=== PATIENT | male | born 1950 | race Caucasian/White ===

== ENCOUNTER → 2018-09-17 07:02 | Outpatient (CLI) | payer MEDICARE, OTHER, SELFPAY ==
[2018-09-17 08:21] LABS: Alanine Aminotransferase 46 IU/L (21-72); Aspartate Aminotransferase 30 IU/L (17-59); Blood Urea Nitrogen 22 mg/dL (9-20); Calcium 9.6 mg/dL (8.4-10.2); Carbon Dioxide 30 mmol/L (22-32); Chloride 103 mmol/L (98-107); Cholesterol 211 mg/dL (140-199); Estimated Glomerular Filt Rate > 60.0 mL/min (>60); Glucose 119 mg/dL (80-110); HDL Cholesterol 38 mg/dL (40-60); HEMOLYSIS < 15 (0-50); LDL Cholesterol Calculated 124 mg/dL (<100); Potassium 4.3 mmol/L (3.4-5.1); Sodium 140 mmol/L (137-145); Triglycerides 245 mg/dL (35-150)
[2018-09-17 08:34] LABS: Hemoglobin A1C% w Est Avg Glu 6.1 % (4.0-6.0)
== END ==
PROVIDERS: PCP Internal Medicine; Visit Provider Internal Medicine
DX: E78.00 Pure hypercholesterolemia, unspecified (principal); I10 Essential (primary) hypertension; E11.9 Type 2 diabetes mellitus without complications
CPT/HCPCS: 36415; 80048; 80061; 83036; 84450; 84460

== ENCOUNTER → 2019-09-21 07:12 | Outpatient (CLI) | payer MEDICARE, OTHER, SELFPAY ==
[2019-09-21 08:37] LABS: Add Manual Diff / Slide Review NO; Basophils Absolute Auto 0 /uL (0-100); Basophils Percent Auto 0.4 % (0-2); Eosinophils Absolute Auto 200 /uL (0-450); Hematocrit 48.7 % (41-53); Hemoglobin 16.7 g/dL (13.5-17.5); Lymphocytes Absolute Auto 2400 /uL (1100-4500); Lymphocytes Percent Auto 26.1 % (25-40); Mean Corpuscular HGB Conc 34.3 % (30-36); Mean Corpuscular Hemoglobin 30.4 PG (26-34); Mean Corpuscular Volume 88.5 fL (80-100); Monocytes Absolute Auto 700 /uL (0-900); Monocytes Percent Auto 7.8 % (3-14); Neutrophils Absolute Auto 5800 /uL (1500-7000); Neutrophils Percent Auto 63.7 % (50-75); Platelet Count 173 X10^3/uL (150-400); Red Cell Distribution Width 13.2 % (11.6-14.8); White Blood Cell Count 9.1 X10^3/uL (4.5-11.0)
[2019-09-21 09:07] LABS: Hemoglobin A1C% w Est Avg Glu 6.6 % (4.0-6.0)
[2019-09-21 09:10] LABS: Alanine Aminotransferase 36 IU/L (<50); Albumin 4.6 g/dL (3.5-5.0); Albumin Globulin Ratio 1.7 (1.0-2.8); Alkaline Phosphatase 92 U/L (38-126); Aspartate Aminotransferase 34 IU/L (17-59); BUN Creatinine Ratio 30.1 (6-22); Bilirubin Total 0.6 mg/dL (0.2-1.3); Blood Urea Nitrogen 25 mg/dL (9-20); Calcium 9.7 mg/dL (8.4-10.2); Carbon Dioxide 26 mmol/L (22-32); Chloride 103 mmol/L (98-107); Cholesterol 146 mg/dL (140-199); Estimated Glomerular Filt Rate > 60.0 mL/min (>60); Globulin 2.7 g/dL (1.7-4.1); Glucose 114 mg/dL (80-110); HDL Cholesterol 32 mg/dL (40-60); HEMOLYSIS < 15 (0-50); LDL Cholesterol Calculated 59 mg/dL (<100); Lipase 75 U/L (23-300); Potassium 4.1 mmol/L (3.4-5.1); Sodium 140 mmol/L (137-145); Total Protein 7.3 g/dL (6.3-8.2); Triglycerides 274 mg/dL (35-150)
== END ==
PROVIDERS: PCP Internal Medicine; Referring Provider Internal Medicine; Visit Provider Internal Medicine
DX: R10.11 Right upper quadrant pain (principal); E78.5 Hyperlipidemia, unspecified; E11.9 Type 2 diabetes mellitus without complications
CPT/HCPCS: 36415; 80053; 80061; 83036; 83690; 85025

== ENCOUNTER → 2019-09-22 11:30 | Outpatient (CLI) | payer MEDICARE, OTHER, SELFPAY ==
--- NOTE | 2019-09-22 | DI.US.S_ITS ---
PROCEDURE: US ABDOMEN COMPLETE INDICATIONS: HYPERLIPIDEMIA, UNSPECIFIED TECHNIQUE: Real-time scanning was performed of the abdominal and retroperitoneal organs, with image documentation. COMPARISON: None. FINDINGS: Liver: The liver demonstrates normal size. The liver demonstrates generalized increased echogenicity. This decreases ultrasound sensitivity for detection of hepatic masses. Gallbladder: No findings of gallstones or sludge are seen. The gallbladder wall is not thickened, measuring 3 mm or less. No specific pericholecystic fluid is seen. The sonographic Cruz sign is negative. Biliary ducts: Intrahepatic bile ducts are non-dilated. Extrahepatic bile duct caliber measures 4 mm. Normal is 6-7 mm or less in diameter, or 10 mm or less post-cholecystectomy. Pancreas: Not well-seen Spleen: Spleen is normal in size and homogeneous in echotexture. Kidneys: Kidneys are normal in size and echotexture. Right kidney measures 12.1 cm long; left kidney measures 12.8 cm long. No hydronephrosis or nephrolithiasis. No solid masses. An apparent very pelvic cysts can be seen on the left, which measure up to 2.8 cm. Aorta: Visualized aorta is normal in caliber at less than 3 cm. Iliacs: Proximal common iliac arteries are normal in caliber at less than 2.5 cm. IVC: Not well-seen. Miscellaneous: No free abdominal fluid. IMPRESSION: The liver demonstrates increased echogenicity. This finding is nonspecific, yet it is most commonly attributed to fatty infiltration. The gallbladder demonstrates a normal sonographic appearance. No biliary dilatation is seen. Apparent left peripelvic cyst can be seen. Dictated by: Pedro Beck M.D. on 09/22/2019 at 14:07 Approved by: Pedro Beck M.D. on 09/22/2019 at 14:08
== END ==
PROVIDERS: PCP Internal Medicine; Referring Provider Internal Medicine; Visit Provider Internal Medicine
DX: N28.1 Cyst of kidney, acquired (principal); E78.5 Hyperlipidemia, unspecified
CPT/HCPCS: 76700

== ENCOUNTER → 2019-10-01 08:18 | Outpatient (CLI) | payer MEDICARE, OTHER, SELFPAY ==
[2019-10-02 10:08] LABS: SARS CoV19 IgG Negative (Negative)
== END ==
PROVIDERS: PCP Internal Medicine; Referring Provider Internal Medicine; Visit Provider Internal Medicine
DX: Z03.818 Encounter for observation for suspected exposure to other biological agents ruled out (principal)
CPT/HCPCS: 36415; 86769

== ENCOUNTER → 2024-03-10 10:01 | Outpatient (CLI) | payer MEDICARE, OTHER, SELFPAY ==
--- NOTE | 2024-03-10 10:05 | DI.RAD.S_ITS ---
PROCEDURE: XR CHEST 2V INDICATIONS: Other forms of dyspnea TECHNIQUE: 2 views of the chest were acquired. COMPARISON: None. FINDINGS: Heart, mediastinum and pulmonary vascular: Heart is normal in size and configuration. Mediastinum is unremarkable. Pulmonary vascular is normal. Lungs: Scattered small calcified granulomas seen in both lungs. Pleural spaces: Normal-no effusions or pneumothorax. Bones and soft tissues: Normal IMPRESSION: Negative Dictated by: Akbar Conh M.D. on 03/11/2024 at 9:04 Approved by: Akbar Cohn M.D. on 03/11/2024 at 9:04
== END ==
PROVIDERS: PCP Internal Medicine; Referring Provider Internal Medicine; Visit Provider Internal Medicine
DX: R07.9 Chest pain, unspecified (principal); R06.09 Other forms of dyspnea
CPT/HCPCS: 71046

== ENCOUNTER → 2024-03-29 13:25 | Outpatient (CLI) | payer MEDICARE, OTHER, SELFPAY ==
--- NOTE | 2024-03-29 13:27 | DI.NM.S_ITS ---
PROCEDURE: NM MARILYN PERF SPECT REST & STR Rest and exercise myocardial perfusion SPECT with gated imaging and ejection fraction RADIOPHARMACEUTICAL: 27.3 mCi Tc-99m sestamibi IV at rest and 27.5 mCi Tc-99m sestamibi IV at peak exercise. A [id number] was performed. INDICATIONS: CHEST PAIN,HIGH CAD RISK TECHNIQUE: Radiopharmaceutical was injected at peak stress test, and also at rest. SPECT images were obtained. SPECT myocardial perfusion images were displayed in short axis, horizontal long axis, and vertical long axis views. Gated images were reviewed using [employer] software. COMPARISON: None. CARDIAC STRESS: A standard Mandeep treadmill exercise tolerance test was performed by the patient under the supervision of an attending staff. The patient exercised for 4 minutes and 27 seconds; 7.0 METS; functional aerobic impairment (GOIRGI) is +23%. Hemodynamic data: There is normal blood pressure response to exercise stress. There is an accelerated heart rate response. Patient achieved 96% of maximum predicted heart rate at peak exercise. Peak blood pressure 142/80. Symptoms: Patient confirmed chest pain during exercise. EKG: Sinus rhythm, anterolateral ST segment depressions. Exercise EKG sinus tachycardia, bigeminal PVCs with runs of NSVT, 1.5 to [address] segment depressions inferior and anterolateral leads. FINDINGS: Raw data: There is good myocardial labeling by radiotracer. No significant motion artifacts. Left ventricle function: Gated images demonstrate hypokinesis of the mid to distal anterior, distal inferior and apical garcia. No transient ischemic dilation; TID is 0.93 (normal less than 1.3). The left ventricle resting end-diastolic volume is 129 mL. Left ventricle stress ejection fraction is visually 40%; normal values are above 45%. Myocardial perfusion: There is a large size, moderate to severe intensity partially reversible mid to distal anterior, distal inferior and apical wall defect. IMPRESSION: Abnormal study. The large size, moderate-severe intensity partially reversible mid to distal anterior, distal inferior and apical wall defect with associated hypokinesis on gated imaging is consistent with ischemia in the LAD territory. Abnormal exercise ECG consistent with inducible ischemia along with bigeminal PVCs and NSVT. Accelerated heart rate response. Normal blood pressure response. Reduced exercise capacity. Result discussed with ordering physician, Dr. Hu who will notify patient of result and advise that he proceed to the ED. Dictated by: Aleta Crain D.O. on 03/30/2024 at 10:21 Approved by: Aleta Crain D.O. on 03/30/2024 at 12:20
== END ==
PROVIDERS: PCP Internal Medicine; Referring Provider Internal Medicine; Visit Provider Internal Medicine
DX: R07.9 Chest pain, unspecified (principal); R94.39 Abnormal result of other cardiovascular function study
CPT/HCPCS: 78452; 93016; 93017; 93018; A9502